=== PATIENT | male | born 1990 | race Caucasian/White ===

== ENCOUNTER 2019-02-18 08:11 | Emergency (ER) | payer OTHER ==
[~2019-02-18] VITALS: Ht 185.4 cm; Wt 86.2 kg
[2019-02-18] MEDS ORDERED: ANUSOL-HC25 MG RECTAL (08:29)
[2019-02-18 08:42] VITALS: BP 130/79
== END 2019-02-18 08:43 | disposition home or self-care (01) ==
LOC: M.ERS 08:11
DX: K64.4 Residual hemorrhoidal skin tags (principal)